=== PATIENT | male | born 1985 | race Caucasian/White ===

== ENCOUNTER 2019-04-15 09:49 | Emergency (ER) | payer OTHER ==
[~2019-04-15] VITALS: Ht 182.9 cm; Wt 95.7 kg
[2019-04-15 09:55] VITALS: Ht 182.9 cm; Wt 95.7 kg
[2019-04-15 11:04] LABS: CALCIUM 8.1 mg/dL (8.5-10.1); CARBON DIOXIDE 27.1 mmol/L (21-32); CHLORIDE SERUM 109 mmol/L (98-107); CREATININE SERUM 1.1 mg/dL (0.7-1.3); GFR1 > 60 mL/min; GLUCOSE SERUM 151 mg/dL (74-106); POTASSIUM SERUM 3.2 mmol/L (3.5-5.1); SODIUM SERUM 145 mmol/L (136-145)
[2019-04-15 11:16] LABS: ALBUMIN 3.5 g/dL (3.4-5.0); ALKALINE PHOSPHATASE 62 U/L (46-116); ALT/SGPT 36 U/L (16-63); AST/SGOT 20 U/L (15-37); BILIRUBIN TOTAL 0.2 mg/dL (0.20-1.00)
[2019-04-15 11:29] LABS: BASOPHIL % 0.4 % (0-2); PLATELET COUNT 317 x10^3mcL (130-400); RED CELL DISTRIBUTION WIDTH 12.2 % (11.5-14.5)
[2019-04-15 12:30] LABS: AMPHETAMINE QUAL UR NONE DETECTED (See below)
[2019-04-15 12:43] LABS: T3 TOTAL 1.14 ng/mL
[2019-04-15 12:45] LABS: FREE T4 1.02 ng/dL (0.76-1.46); T4(THYROXINE) 8.5 ug/dL (4.7-13.3)
[2019-04-15 14:35] VITALS: BP 128/71
== END 2019-04-15 14:35 | disposition home or self-care (01) ==
LOC: ED 09:49
PROVIDERS: Emergency Medicine
DX: R56.9 Unspecified convulsions (principal); Z88.0 Allergy status to penicillin
CPT/HCPCS: 82962; 84439; 90715; G0480; J7030

== ENCOUNTER 2020-03-10 22:15 | Emergency (ER) | payer MEDICAID ==
[~2020-03-10] VITALS: Ht 177.8 cm; Wt 97.5 kg
[2020-03-10 22:17] VITALS: Ht 177.8 cm; Wt 97.5 kg
[2020-03-11 00:06] LABS: BASOPHIL % 0.3 % (0-2); PLATELET COUNT 285 x10^3mcL (130-400); RED CELL DISTRIBUTION WIDTH 12.2 % (11.5-14.5)
[2020-03-11 00:23] LABS: ALBUMIN 3.7 g/dL (3.4-5.0); ALKALINE PHOSPHATASE 70 U/L (46-116); ALT/SGPT 35 U/L (16-63); AST/SGOT 20 U/L (15-37); BILIRUBIN TOTAL 0.2 mg/dL (0.20-1.00); CALCIUM 8.2 mg/dL (8.5-10.1); CHLORIDE SERUM 102 mmol/L (98-107); CHOLESTEROL 175 mg/dL (<200); CREATININE SERUM 1.2 mg/dL (0.7-1.3); GFR1 > 60 mL/min; GLUCOSE SERUM 191 mg/dL (74-106); SODIUM SERUM 139 mmol/L (136-145)
[2020-03-11 00:31] LABS: POTASSIUM SERUM 2.9 mmol/L (3.5-5.1)
[2020-03-11 00:53] LABS: AMPHETAMINE QUAL UR NONE DETECTED (See below)
[2020-03-11 03:31] VITALS: BP 129/68
== END 2020-03-11 03:31 | disposition home or self-care (01) ==
LOC: ED 22:15
PROVIDERS: Specialist
DX: R56.9 Unspecified convulsions (principal); E87.6 Hypokalemia; F12.20 Cannabis dependence, uncomplicated; Z88.0 Allergy status to penicillin
CPT/HCPCS: G0480; J3475; J3480; J7030